=== PATIENT | female | born 1965 | race African-American/Black ===

== ENCOUNTER 2018-12-29 15:02 | Emergency (ER) | payer OTHER ==
--- NOTE | 2018-12-29 15:53 | ED ---
General Adult HPI - General Chief complaint: Recheck/Abnormal Lab/Rx Stated complaint: keeps falling asleep/OD on xanax 3 days ago Time Seen by Provider: 12/29/18 15:24 Source: patient, RN notes reviewed Mode of arrival: wheelchair Limitations: no limitations - History of Present Illness Initial comments: 53-year-old female presents to the emergency department for a chief complaint of fatigue. Patient is in [place] where she has been for the past 4 days. Patient states she last used heroin 4 days ago and overdosed on Xanax 4 days ago. States that yesterday she started to become very fatigued. States that she was started on Suboxone and since then hasn't been sleeping very well at night and so has been falling asleep during the day. Patient states she is having any other symptoms. Patient states "I fell asleep in class today so they made me come to the ER." Patient states that otherwise she feels completely fine. Denies any chest pain or shortness of breath. Denies any difficulty walking.Patient has no other complaints at this time including shortness of breath, chest pain, abdominal pain, nausea or vomiting, headache, or visual changes. - Related Data Allergies Allergy/AdvReac Type Severity Reaction Status Date / Time Penicillins Allergy Unknown Verified 12/29/18 15:19 Tetracyclines Allergy Unknown Verified 12/29/18 15:19 Review of Systems ROS Statement: Those systems with pertinent positive or pertinent negative responses have been documented in the HPI. ROS Other: All systems not noted in ROS Statement are negative. Past Medical History Past Medical History: Hypertension Additional Past Medical History / Comment(s): crohns History of Any Multi-Drug Resistant Organisms: None Reported Past Surgical History: Unable to Obtain Past Psychological History: Depression Smoking Status: Current every day smoker Past Alcohol Use History: None Reported Past Drug Use History: Heroin General Exam Limitations: no limitations General appearance: alert, in no apparent distress Head exam: Present: atraumatic, normocephalic, normal inspection Eye exam: Present: normal appearance, PERRL, EOMI. Absent: scleral icterus, conjunctival injection, periorbital swelling ENT exam: Present: normal exam, normal oropharynx, mucous membranes moist, TM's normal bilaterally, normal external ear exam Neck exam: Present: normal inspection, full ROM. Absent: tenderness, meningismus, lymphadenopathy Respiratory exam: Present: normal lung sounds bilaterally. Absent: respiratory distress, wheezes, rales, rhonchi, stridor Cardiovascular Exam: Present: regular rate, normal rhythm, normal heart sounds. Absent: systolic murmur, diastolic murmur, rubs, gallop, clicks GI/Abdominal exam: Present: soft, normal bowel sounds. Absent: distended, tenderness, guarding, rebound, rigid Neurological exam: Present: alert, oriented X3, CN II-XII intact, normal gait Expanded Patient oriented to: Present: person, place, time Speech: Present: fluid speech Cranial nerves: EOM's Intact: Normal, Tongue Deviation: Normal, Nystagmus: Normal, Facial Sensation: Normal Cerebellar function: Finger to Nose: Normal, Heel to Watkins: Normal Upper motor neuron: Pronator Drift: Normal Sensory exam: Upper Extremity Light Touch: Normal, Upper Extremity Pin Prick: Normal, Lower Extremity Light Touch: Normal, Lower Extremity Pin Prick: Normal Motor strength exam: RUE: 5, LUE: 5, RLE: 5, LLE: 5 Eye Response: (4) open spontaneously Motor Response: (6) obeys commands Verbal Response: (5) oriented Amina Total: 15 Psychiatric exam: Present: normal affect, normal mood Course Vital Signs 12/29/18 15:16 Temperature 97.8 F Pulse Rate 52 L Respiratory 18 Rate Blood Pressure 101/52 O2 Sat by Pulse 96 Oximetry Medical Decision Making - Medical Decision Making 53-year-old female currently staying at [facility] for heroin use presents to the emergency department for fatigue. Patient states that she was given Suboxone for the past 2 days and has been falling asleep. States she also overdosed on Xanax 3 days ago. Patient is denying any other symptoms besides feeling tired. On visitation to the emergency department patient is alert and oriented, sitting up in a chair. If she has no neurologic deficits. She is well-appearing. Vitals are stable With a pulse rate of 52 and a blood pressure of 101/52. I did recommend basic lab including a CBC, CMP, urine test however patient refuses this. States she has very difficult IV access and does not feel this is necessary at this time. States she feels completely fine. She also refuses EKG saying she does not feel sick at all and would like to go back to [place]. I do feel that patient's symptoms are likely secondary to polysubstance use and withdrawal. Patient states she is also not sleeping well at night so this could be causing her to be more tired during the day. Patient is stable and ambulating around the room, requesting discharge. Discussed returning here if she has worsening symptoms that she does agree to do. Disposition Clinical Impression: Polysubstance dependence Disposition: HOME SELF-CARE Condition: Good Instructions (If sedation given, give patient instructions): Polysubstance Abuse (ED) Additional Instructions: Please follow up with primary care in 1-2 days. If you have any worsening symptoms please return here to the emergency department. Is patient prescribed a controlled substance at d/c from ED?: No Referrals: Nonstaff,Physician [Primary Care Provider] - 1-2 days Time of Disposition: 15:56
[2018-12-29] MEDS ORDERED: SODIUM CHLORIDE 0.9% 1,000 ML IV STA ×2 (17:56→17:57)
[2018-12-29 18:52] LABS: Basophils % (A) 0 %; Eosinophils # (A) 0.2 k/uL (0-0.7); Eosinophils % (A) 3 %; HCT 35.3 % (34.0-46.0); HGB 11.9 gm/dL (11.4-16.0); Lymphocytes # (A) 2.7 k/uL (1.0-4.8); Lymphocytes % (A) 40 %; MCH 28.3 pg (25.0-35.0); MCHC 33.7 g/dL (31.0-37.0); MCV 84.1 fL (80.0-100.0); Mean Platelet Volume 7.6; Monocytes # (A) 0.2 k/uL (0-1.0); Monocytes % (A) 3 %; Neutrophils # (A) 3.4 k/uL (1.3-7.7); Neutrophils % (A) 51 %; Platelet Count 246 k/uL (150-450); WBC 6.7 k/uL (3.8-10.6)
[2018-12-29 19:01] LABS: INR 0.9 (<1.2); Partial Thromboplastin Time 24.7 sec (22.0-30.0); Prothrombin Time 9.9 sec (9.0-12.0)
[2018-12-29 19:02] LABS: Albumin 3.8 g/dL (3.5-5.0); Calcium 9.4 mg/dL (8.4-10.2); Magnesium 1.6 mg/dL (1.6-2.3); Potassium 3.5 mmol/L (3.5-5.1); Total Bilirubin 0.4 mg/dL (0.2-1.3); Total Protein 6.8 g/dL (6.3-8.2)
--- NOTE | 2018-12-29 19:41 | XR ---
EXAMINATION TYPE: XR chest 2V DATE OF EXAM: 12/29/2018 COMPARISON: None HISTORY: Weakness TECHNIQUE: Frontal and lateral views of the chest are obtained. FINDINGS: Heart is enlarged. There is no heart failure. Thoracic aorta is atheromatous. There is no pleural effusion. Bony thorax is intact. IMPRESSION: Cardiomegaly. No acute lung disease. No gross heart failure.
--- NOTE | 2018-12-29 20:34 | ED ---
General Adult HPI - General Chief complaint: Recheck/Abnormal Lab/Rx Stated complaint: keeps falling asleep/OD on xanax 3 days ago Time Seen by Provider: 12/29/18 15:24 Source: patient, RN notes reviewed Mode of arrival: wheelchair Limitations: no limitations - History of Present Illness Initial comments: 53-year-old female with a past medical history of Crohn's presents to the emergency department for a chief complaint of fatigue. Patient was just d ischarged from the emergency department after refusing any testing however [facility] refused to readmit her so she did come back for testing. Patient has been fatigued for the past several days. Has been given Suboxone yesterday and today. Is currently in [place] for opioids including heroin. Patient also took Xanax a few days ago. Patient was sent here because her blood pressure was low and she was fatigued. Patient is denying any symptoms at this time. Patient has no other complaints at this time including shortness of breath, chest pain, abdominal pain, nausea or vomiting, headache, or visual changes. - Related Data Home Medications Medication Instructions Recorded Confirmed ARIPiprazole [Abilify] 15 mg PO HS@2200 12/29/18 12/29/18 Acetaminophen Tab [Tylenol Tab] 650 mg PO Q4H PRN 12/29/18 12/29/18 Albuterol Inhaler [Ventolin Hfa 1 puff INHALATION RT-Q4H PRN 12/29/18 12/29/18 Inhaler] Beclomethasone Dipropionate [Qvar 2 puff INHALATION RT-BID 12/29/18 12/29/18 80 mcg] Buprenorphine HCl [Subutex] See Taper SL DIRECTED 12/29/18 12/29/18 Calcium/Magnesium 1000mg/500mg 1 - 2 tab PO TID PRN 12/29/18 12/29/18 Chlorpheniramine Maleate 4 mg PO Q4H PRN 12/29/18 12/29/18 [Chlor-Trimeton] Dicyclomine [Bentyl] 20 mg PO BID@0600,1730 12/29/18 12/29/18 Escitalopram Oxalate [Lexapro] 20 mg PO DAILY@0600 12/29/18 12/29/18 Furosemide [Lasix] 20 mg PO DAILY@0600 12/29/18 12/29/18 Lisinopril 40 mg PO DAILY@0600 12/29/18 12/29/18 Mesalamine [Pentasa] 1,000 mg PO BID@0600,1730 12/29/18 12/29/18 Metoprolol Tartrate [Lopressor] 100 mg PO TID@0600,1530,2200 12/29/18 12/29/18 Multivitamins, Thera [Multivitamin 1 tab PO DAILY 12/29/18 12/29/18 (formulary)] Ondansetron HCl [Zofran] 8 mg PO Q6HR PRN 12/29/18 12/29/18 Ondansetron [Zofran] 4 mg IM Q6H PRN 12/29/18 12/29/18 Thiamine HCl [Vitamin B-1] 100 mg PO DAILY 12/29/18 12/29/18 busPIRone HCl [Buspar] 10 mg PO DIRECTED PRN 12/29/18 12/29/18 cloNIDine HCL 0.3 mg PO TID@0600,1530,2200 12/29/18 12/29/18 cloNIDine HCL [Catapres] 0.1 mg PO Q4H PRN 12/29/18 12/29/18 traZODone HCL 50 - 150 mg PO HS PRN 12/29/18 12/29/18 Allergies Allergy/AdvReac Type Severity Reaction Status Date / Time Penicillins Allergy Unknown Verified 12/29/18 17:34 Tetracyclines Allergy Unknown Verified 12/29/18 17:34 Review of Systems ROS Statement: Those systems with pertinent positive or pertinent negative responses have been documented in the HPI. ROS Other: All systems not noted in ROS Statement are negative. Past Medical History Past Medical History: Hypertension Additional Past Medical History / Comment(s): crohns History of Any Multi-Drug Resistant Organisms: None Reported Past Surgical History: Unable to Obtain Past Psychological History: Depression Smoking Status: Current every day smoker Past Alcohol Use History: None Reported Past Drug Use History: Heroin General Exam Limitations: no limitations General appearance: alert, in no apparent distress Head exam: Present: atraumatic, normocephalic, normal inspection Eye exam: Present: normal appearance, PERRL, EOMI. Absent: scleral icterus, conjunctival injection, periorbital swelling ENT exam: Present: normal exam, mucous membranes moist Neck exam: Present: normal inspection, full ROM. Absent: tenderness, meningismus, lymphadenopathy Respiratory exam: Present: normal lung sounds bilaterally. Absent: respiratory distress, wheezes, rales, rhonchi, stridor Cardiovascular Exam: Present: regular rate, normal rhythm, normal heart sounds. Absent: systolic murmur, diastolic murmur, rubs, gallop, clicks Neurological exam: Present: alert, oriented X3, CN II-XII intact Psychiatric exam: Present: normal affect, normal mood Course Vital Signs 12/29/18 12/29/18 12/29/18 15:16 16:23 17:30 Temperature 97.8 F 98.1 F Pulse Rate 52 L 56 L 48 L Respiratory 18 18 21 Rate Blood Pressure 101/52 82/48 99/67 O2 Sat by Pulse 96 96 94 L Oximetry 12/29/18 12/29/18 12/29/18 18:00 18:30 19:00 Temperature Pulse Rate 48 L 48 L 49 L Respiratory 19 17 16 Rate Blood Pressure 95/69 122/72 136/78 O2 Sat by Pulse 100 100 Oximetry 12/29/18 20:24 Temperature Pulse Rate 48 L Respiratory 18 Rate Blood Pressure 139/94 O2 Sat by Pulse 95 Oximetry EKG Findings - EKG Comments: EKG Findings:: Sinus bradycardia, ventricular 48, NM interval 162, QRS 86, QTC 480 Medical Decision Making - Medical Decision Making 53-year-old male with a past medical history of Crohn's presents to the emergency department for a chief complaint of fatigue. Patient was just discharged from the emergency department after refusing any testing however [facility] refused to readmit her so she did come back for testing. Patient has been fatigued for the past several days. Has been given Suboxone yesterday and today. Is currently in [place] for opioids including heroin. Patient also took Xanax a few days ago. Patient was sent here because her blood pressure was low and she was fatigued. Patient is denying any symptoms at this time. Patient's blood pressure was initially 99/67 at this visit but has been consistently in the 120s to 130s over 90s to 70s for the last 2 hours of her visit and received 2 L of fluids. CBC CMP unremarkable. Creatinine mildly elevated at 1.12, patient given fluids. Troponin is negative. Chest x-ray shows no acute lung disease. There is cardiomegaly without gross heart failure. EKG does show a sinus bradycardia of 48. Patient has had a heart rate of 53- 48 throughout her visit. States her heart rate normally runs low and her doctor always tells her this. Hypotension may have been due to Suboxone use. At this time Dr Milan and myself are comfortable letting patient go home as blood pressure is now in the 120 - 140s. She is requesting discharge. Patient will follow up with primary care and return here if she has any worsening symptoms. - Lab Data Result diagrams: 12/29/18 18:39 12/29/18 18:39 Lab Results 12/29/18 12/29/18 12/29/18 Range/Units 18:39 18:39 18:39 WBC 6.7 (3.8-10.6) k/uL RBC 4.20 (3.80-5.40) m/uL Hgb 11.9 (11.4-16.0) gm/dL Hct 35.3 (34.0-46.0) % MCV 84.1 (80.0-100.0) fL MCH 28.3 (25.0-35.0) pg MCHC 33.7 (31.0-37.0) g/dL RDW 14.0 (11.5-15.5) % Plt Count 246 (150-450) k/uL Neutrophils % 51 % Lymphocytes % 40 % Monocytes % 3 % Eosinophils % 3 % Basophils % 0 % Neutrophils # 3.4 (1.3-7.7) k/uL Lymphocytes # 2.7 (1.0-4.8) k/uL Monocytes # 0.2 (0-1.0) k/uL Eosinophils # 0.2 (0-0.7) k/uL Basophils # 0.0 (0-0.2) k/uL PT 9.9 (9.0-12.0) sec INR 0.9 (<1.2) APTT 24.7 (22.0-30.0) sec Sodium 140 (137-145) mmol/L Potassium 3.5 (3.5-5.1) mmol/L Chloride 109 H (98-107) mmol/L Carbon Dioxide 23 (22-30) mmol/L Anion Gap 8 mmol/L BUN 18 H (7-17) mg/dL Creatinine 1.12 H (0.52-1.04) mg/dL Est GFR (CKD-EPI)AfAm 64 (>60 ml/min/1.73 sqM) Est GFR (CKD-EPI)NonAf 56 (>60 ml/min/1.73 sqM) Glucose 124 H (74-99) mg/dL Calcium 9.4 (8.4-10.2) mg/dL Magnesium 1.6 (1.6-2.3) mg/dL Total Bilirubin 0.4 (0.2-1.3) mg/dL AST 35 (14-36) U/L ALT 17 (9-52) U/L Alkaline Phosphatase 66 (38-126) U/L Troponin I (0.000-0.034) ng/mL Total Protein 6.8 (6.3-8.2) g/dL Albumin 3.8 (3.5-5.0) g/dL 12/29/18 Range/Units 18:39 WBC (3.8-10.6) k/uL RBC (3.80-5.40) m/uL Hgb (11.4-16.0) gm/dL Hct (34.0-46.0) % MCV (80.0-100.0) fL MCH (25.0-35.0) pg MCHC (31.0-37.0) g/dL RDW (11.5-15.5) % Plt Count (150-450) k/uL Neutrophils % % Lymphocytes % % Monocytes % % Eosinophils % % Basophils % % Neutrophils # (1.3-7.7) k/uL Lymphocytes # (1.0-4.8) k/uL Monocytes # (0-1.0) k/uL Eosinophils # (0-0.7) k/uL Basophils # (0-0.2) k/uL PT (9.0-12.0) sec INR (<1.2) APTT (22.0-30.0) sec Sodium (137-145) mmol/L Potassium (3.5-5.1) mmol/L Chloride (98-107) mmol/L Carbon Dioxide (22-30) mmol/L Anion Gap mmol/L BUN (7-17) mg/dL Creatinine (0.52-1.04) mg/dL Est GFR (CKD-EPI)AfAm (>60 ml/min/1.73 sqM) Est GFR (CKD-EPI)NonAf (>60 ml/min/1.73 sqM) Glucose (74-99) mg/dL Calcium (8.4-10.2) mg/dL Magnesium (1.6-2.3) mg/dL Total Bilirubin (0.2-1.3) mg/dL AST (14-36) U/L ALT (9-52) U/L Alkaline Phosphatase (38-126) U/L Troponin I <0.012 (0.000-0.034) ng/mL Total Protein (6.3-8.2) g/dL Albumin (3.5-5.0) g/dL Disposition Clinical Impression: Polysubstance dependence, Fatigue, Bradycardia, Dehydration Disposition: HOME SELF-CARE Condition: Good Instructions (If sedation given, give patient instructions): Polysubstance Abuse (ED) Additional Instructions: Please follow up with primary care in 1-2 days. If you have any worsening sym ptoms please return here to the emergency department. Is patient prescribed a controlled substance at d/c from ED?: No Referrals: Nonstaff,Physician [Primary Care Provider] - 1-2 days Time of Disposition: 20:35
[2018-12-29 21:08] VITALS: BP 152/76; PULSE 55; RESP 17; TEMP 98.7
== END 2018-12-29 21:08 | disposition home or self-care (01) ==
LOC: EC 15:02
DX: F19.20 Other psychoactive substance dependence, uncomplicated (principal); I95.9 Hypotension, unspecified; F17.200 Nicotine dependence, unspecified, uncomplicated; Z88.0 Allergy status to penicillin; Z88.1 Allergy status to other antibiotic agents; Z53.20 Procedure and treatment not carried out because of patient's decision for unspecified reasons
CPT/HCPCS: 36415; 71046; 80053; 83735; 84484; 85025; 85610; 85730; 93005; 96360; 96361; 99283